=== PATIENT | female | born 1985 | race Caucasian/White ===

== ENCOUNTER 2024-02-22 13:54 | Emergency (ER) | payer MEDICAID, SELFPAY ==
[2024-02-22 13:58] VITALS: BP 158/65; PULSE 86; RESP 16; TEMP 36.7; O2SAT 98; BMI 25.6
[2024-02-22 14:33] LABS: Basophils # 0.1 10^3/uL (0.0-0.1); Basophils % 0.4 %; Eosinophils # 0.1 10^3/uL (0.0-0.8); Eosinophils % 1.1 %; Hematocrit 33.3 % (36-47); Lymphocytes # 2.5 10^3/uL (0.8-4.8); Lymphocytes % 19.1 %; Mean Corpuscular HGB Conc 33.3 g/dL (30-55); Mean Corpuscular Hemoglobin 30.7 pg (27-33); Mean Platelet Volume 8.6 fL (7.4-10.4); Monocytes # 0.7 10^3/uL (0.2-0.9); Neutrophils % 73.5 %; Nucleated Red Blood Cells % 0 %; Platelet Count 240 10^3/cmm (157-399); Red Blood Count 3.62 10^6/uL (3.85-5.65); Red Cell Distribution Width 12.9 % (12.1-15.1); White Blood Count 13.06 10^3/uL (3.29-11.43)
[2024-02-22 14:46] LABS: HCG, Serum Qual Positive (Negative)
[2024-02-22 14:51] LABS: Alanine Aminotransferase 10 U/L (0-33); Albumin Level 3.5 g/dL (3.5-5.2); Alkaline Phosphatase 49 U/L (35-105); Anion Gap 12.8 (5-19); Aspartate Amino Transferase 13 U/L (0-32); Blood Urea Nitrogen 10 mg/dL (6-20); Calcium 9.3 mg/dL (8.5-10.5); Carbon Dioxide 23 mmol/L (22-29); Chloride 102 mmol/L (98-107); Creatinine Clr Calc Pharmacy 111.3075; Glomerular Filtration Rate 111.9 mL/min (90-130); Glucose 108 mg/dL (65-115); Lipase 47 U/L (13-60); Osmolality Calculated 278 mOsm/kg (285-295); Potassium 3.8 mmol/L (3.5-5.1); Sodium 134 mmol/L (136-145); Total Bilirubin 0.2 mg/dL (0.15-1.2); Total Protein 6.5 g/dL (6.6-8.7)
--- NOTE | 2024-02-22 15:10 | W.ED.ABDPA2 ---
HPI - Abdominal Pain General: Chief Complaint: Abdominal Pain Stated Complaint: abd pain, possible contractions, 15 weeks Time Seen by Provider: 02/22/24 14:53 Source: patient Mode of arrival: ambulatory Limitations: no limitations History of Present Illness: 31-year-old female is currently 15 weeks states she has had some lower abdominal cramping was concerned she is having contractions states she has no pain currently. She denies any vaginal bleeding denies any fluid. Patient denies any fever vomiting or diarrhea. Associated Symptoms: Denies chills, diarrhea, fever(s), nausea and vomiting Review of Systems Const: Denies: fever(s), chills, body aches or change in appetite ENMT: Denies: throat pain or dental pain Card: Denies: chest pain Resp: Denies: dyspnea GI: Reports: abdominal pain; Denies: nausea, vomiting or diarrhea Musc: Denies: neck pain or back pain Skin/Breast: Denies: rash Neuro: Denies: headache(s) Physical Exam Const: COMMON NORMALS: no acute distress, patient oriented x3 and healthy appearing HENMT: COMMON NORMALS: normocephalic and atraumatic HEAD & SCALP: normocephalic and atraumatic Eye: COMMON NORMALS: conjunctivae normal CONJUNCTIVA: Yes conjunctivae normal Neck/C-Spine: COMMON NORMALS: full ROM and supple Chest: COMMONS NORMALS: normal inspection of the chest and normal palpation of entire chest wall Resp: COMMON NORMALS: normal respiratory effort Cardio: COMMON NORMALS: regular rate, regular rhythm and No murmurs present (Cardio) RATE: regular rate RHYTHM: regular rhythm GI: COMMON NORMALS: Normal to inspection, nondistended, normoactive bowel sounds present, Soft to palpation, non-tender and no masses PALPATION: Yes Soft to palpation Extremity: COMMON NORMALS: normal to inspection and full ROM Neuro: COMMON NORMALS: patient oriented x3, moves all extremities and no focal motor deficits Psych: COMMON NORMALS: mental status grossly normal, Normal thought process present and cooperative THOUGHT PROCESS: Normal thought process present Skin: COMMON NORMALS: no rashes or lesions noted and no wounds GENERAL SKIN EXAM: no rashes or lesions noted Course Vital Signs: Vital signs: Vital Signs Temperature 98.0 F 02/22/24 13:58 Pulse Rate 86 02/22/24 13:58 Respiratory Rate 16 02/22/24 13:58 Blood Pressure 158/65 02/22/24 13:58 Pulse Oximetry 98 02/22/24 13:58 Oxygen Delivery Me thod Room Air 02/22/24 13:58 MDM - Abdominal Pain Medical Decision Making Patient presents for some abdominal pain in abdominal exam here is completely benign she has no bleeding or discharge I did a bedside ultrasound IUP consistent with dates heart rate 146 she is follow-up with her OB and [facility] in 2 to 4 days return if worsening she understands agrees to plan. Medical Records I reviewed the patient's medical records. Lab Data I reviewed the patient's lab results. 02/22/24 14:20 02/22/24 14:20 Labs/Radiology: Laboratory Results WBC 13.06 10^3/uL (3.29-11.43) H 02/22/24 14:20 RBC 3.62 10^6/uL (3.85-5.65) L 02/22/24 14:20 Hgb 11.10 g/dL (11.27-16.99) L 02/22/24 14:20 Hct 33.3 % (36-47) L 02/22/24 14:20 MCV 92.0 fl (85-98) 02/22/24 14:20 MCH 30.7 pg (27-33) 02/22/24 14:20 MCHC 33.3 g/dL (30-55) 02/22/24 14:20 RDW 12.9 % (12.1-15.1) 02/22/24 14:20 Plt Count 240 10^3/cmm (157-399) 02/22/24 14:20 MPV 8.6 fL (7.4-10.4) 02/22/24 14:20 Neut % (Auto) 73.5 % 02/22/24 14:20 Lymph % (Auto) 19.1 % 02/22/24 14:20 [place] % (Auto) 5.0 % 02/22/24 14:20 Eos % (Auto) 1.1 % 02/22/24 14:20 Baso % (Auto) 0.4 % 02/22/24 14:20 Neut # (Auto) 9.60 10^3/uL (1.8-7.7) H 02/22/24 14:20 Lymph # (Auto) 2.5 10^3/uL (0.8-4.8) 02/22/24 14:20 [place] # (Auto) 0.7 10^3/uL (0.2-0.9) 02/22/24 14:20 Eos # (Auto) 0.1 10^3/uL (0.0-0.8) 02/22/24 14:20 Baso # (Auto) 0.1 10^3/uL (0.0-0.1) 02/22/24 14:20 Nucleated RBC % (auto) 0 % 02/22/24 14:20 Nucleated RBCs # 0.0 /100WBC 02/22/24 14:20 Sodium 134 mmol/L (136-145) L 02/22/24 14:20 Potassium 3.8 mmol/L (3.5-5.1) 02/22/24 14:20 Chloride 102 mmol/L (98-107) 02/22/24 14:20 Carbon Dioxide 23 mmol/L (22-29) 02/22/24 14:20 Anion Gap 12.8 (5-19) 02/22/24 14:20 BUN 10 mg/dL (6-20) 02/22/24 14:20 Creatinine 0.6 mg/dL (0.5-0.9) 02/22/24 14:20 GFR Calculation 111.9 mL/min (90-130) 02/22/24 14:20 Glucose 108 mg/dL (65-115) 02/22/24 14:20 Calculated Osmolality 278 mOsm/kg (285-295) L 02/22/24 14:20 Calcium 9.3 mg/dL (8.5-10.5) 02/22/24 14:20 Total Bilirubin 0.2 mg/dL (0.15-1.2) 02/22/24 14:20 AST 13 U/L (0-32) 02/22/24 14:20 ALT 10 U/L (0-33) 02/22/24 14:20 Alkaline Phosphatase 49 U/L (35-105) 02/22/24 14:20 Total Protein 6.5 g/dL (6.6-8.7) L 02/22/24 14:20 Albumin 3.5 g/dL (3.5-5.2) 02/22/24 14:20 Globulin 3.0 g/dL (1.3-4.6) 02/22/24 14:20 Lipase 47 U/L (13-60) 02/22/24 14:20 HCG, Qual Positive (Negative) H 02/22/24 14:20 No radiology studies performed this visit Discharge Plan Discharge Patient Disposition: Home Clinical Impression: Abdominal pain affecting Condition: Stable Discharge Orders: Discharge ED (Routine); Ordered 02/22/24 Ordered By: Guera Smith Discharge Diet: Advance as tolerated Discharge Activity: Resume usual activity Patient Instructions: Abdominal Pain in (ED) Coding Level of Care Code ED [employer] Se[employer] Manager for Crista Bethea
[2024-02-22 15:21] VITALS: BP 112/58; PULSE 88; O2SAT 97
[2024-02-22 15:43] VITALS: BP 120/65; PULSE 81; O2SAT 100
[2024-02-22 15:49] LABS: Bilirubin Urine Neg (Negative); Blood Urine 3+ (Negative); Glucose Urine UA Norm (Normal); Ketones Urine Negative (Negative); Leukocyte Esterase Urine Negative (Negative); Nitrate Urine Negative (Negative); Protein Urine Neg (Negative); Urine Appearance Clear (CLEAR); Urine Color Yellow (Yellow); Urobilinogen Urine Norm (Negative); pH Urine 5 (5-7)
[2024-02-22 15:50] LABS: Add Urine Microscopic? YES; Bacteria Urine TRACE /hpf; Mucus Urine 1+ /hpf; RBC Urine 0-4 /hpf (0-2); Squamous Epithelial Cell Urine 0-4 /hpf (0-5); WBC Urine 0-4 /hpf (0-5)
[2024-02-22 15:51] LABS: Add Urine Culture? No
== END 2024-02-22 15:44 | disposition home or self-care (01) ==
PROVIDERS: Emergency Provider Emergency Medicine
DX: O26.892 Other specified pregnancy related conditions, second trimester (principal); R10.30 Lower abdominal pain, unspecified; Z3A.15 15 weeks gestation of pregnancy
CPT/HCPCS: 36415; 80053; 81001; 83690; 84703; 85025; 99283

== ENCOUNTER 2024-02-29 12:46 | Emergency (ER) | payer MEDICAID, SELFPAY ==
[2024-02-29 13:01] VITALS: BP 121/70; PULSE 90; RESP 16; TEMP 36.7; O2SAT 98; BMI 26.5
--- NOTE | 2024-02-29 13:52 | ED_ITS ---
HPI - GI Bleed 2 General: Chief complaint: General Medical Stated complaint: 16 week preg, blood in vomit Time Seen by Provider: 02/29/24 13:46 Source: patient Mode of arrival: ambulatory Limitations: no limitations History of Present Illness: Patient is a 39-year-old female with a history of antiphospholipid syndrome on Lovenox currently at 16 weeks here for complaints of hematemesis over the past 4 days. Patient states for the last 4 days she has awoken from sleep and has had one episode of vomiting that she states contains approximately a teaspoon of blood in it. She has also had a small amount of blood from her sinuses when she blows her nose. Patient is not having any abdominal pain. She has an appointment with her high school art teacher in [place] tomorrow and that she plans on attending. She has no history of GI bleeds. Denies black or tarry stools. MD complaint: blood streaked emesis Onset (ago): day(s) Pain Consistency: intermittent (one episode of emesis daily x 4 days) Severity: mild Relieving factors: none Exacerbating factors: none Context: anticoagulant use Associated symptoms: Reports no associated symptoms and vomiting; Denies abdominal pain, chills, fever(s), headache(s), malaise or rash Treatments Prior to Arrival: none Review of Systems 2 Const: Denies: fever(s), chills, body aches, fatigue or malaise Card: Denies: chest pain Resp: Denies: dyspnea GI: Reports: vomiting and hematemesis; Denies: abdominal pain, heartburn, GI cramping, hematochezia or melena : Denies: flank pain, difficulty voiding, dysuria, urinary frequency, urinary urgency or urinary hesitancy Musc: Denies: neck pain, back pain, extremity pain or joint pain Skin/Breast: Denies: rash Neuro: Denies: headache(s), numbness in extremities, weakness in extremities or sensory changes Physical Exam 2 Const: COMMON NORMALS: no acute distress, patient oriented x3, no limitations, alert and well nourished Resp: COMMON NORMALS: normal respiratory effort and clear to auscultation bilaterally AUSCULTATION: clear to auscultation bilaterally Cardio: COMMON NORMALS: regular rate and regular rhythm RATE: regular rate RHYTHM: regular rhythm GI: COMMON NORMALS: Normal to inspection, nondistended, normoactive bowel sounds present, Soft to palpation and non-tender INSPECTION: Yes gravid abdomen AUSCULTATION: Yes normoactive bowel sounds PALPATION: Yes Soft to palpation, No Tenderness to palpation present (GI), No Guarding due to palpation present (GI) and No Rigid due to palpation Neuro: COMMON NORMALS: patient oriented x3 SENSORIUM/ORIENTATION: Yes alert Course 2 Vital Signs: Vital signs: Vital Signs Temperature 98.0 F 02/29/24 13:01 Pulse Rate 90 02/29/24 13:01 Respiratory Rate 16 02/29/24 13:01 Blood Pressure 121/70 02/29/24 13:01 Pulse Oximetry 98 02/29/24 13:01 Oxygen Delivery Me thod Room Air 02/29/24 13:01 MDM - GI Bleed Medical Decision Making Patient appears in no acute distress. Her vital signs are perfect. Her hemoglobin today is identical to what it was 7 days ago. Patient has no abdominal pain. No black or tarry stools. She has not had any vomiting here for Gastroccult testing. At this point due to her antiphospholipid syndrome and I would like her to speak to her high school art teacher at her scheduled appointment tomorrow about the risks versus benefits of discontinuing the Lovenox. I would like her to follow-up with general surgery for further evaluation for a possible endoscopy. This referral was placed. Strict return ED precautions given. Lab Data 02/29/24 14:09 02/29/24 14:09 Laboratory Results WBC 13.56 10^3/uL (3.29-11.43) H 02/29/24 14:09 RBC 3.60 10^6/uL (3.85-5.65) L 02/29/24 14:09 Hgb 11.10 g/dL (11.27-16.99) L 02/29/24 14:09 Hct 33.0 % (36-47) L 02/29/24 14:09 MCV 91.7 fl (85-98) 02/29/24 14:09 MCH 30.8 pg (27-33) 02/29/24 14:09 MCHC 33.6 g/dL (30-55) 02/29/24 14:09 RDW 13.0 % (12.1-15.1) 02/29/24 14:09 Plt Count 246 10^3/cmm (157-399) 02/29/24 14:09 MPV 8.6 fL (7.4-10.4) 02/29/24 14:09 Neut % (Auto) 73.1 % 02/29/24 14:09 Lymph % (Auto) 19.0 % 02/29/24 14:09 [place] % (Auto) 5.8 % 02/29/24 14:09 Eos % (Auto) 0.8 % 02/29/24 14:09 Baso % (Auto) 0.4 % 02/29/24 14:09 Neut # (Auto) 9.92 10^3/uL (1.8-7.7) H 02/29/24 14:09 Lymph # (Auto) 2.6 10^3/uL (0.8-4.8) 02/29/24 14:09 [place] # (Auto) 0.8 10^3/uL (0.2-0.9) 02/29/24 14:09 Eos # (Auto) 0.1 10^3/uL (0.0-0.8) 02/29/24 14:09 Baso # (Auto) 0.1 10^3/uL (0.0-0.1) 02/29/24 14:09 Nucleated RBC % (auto) 0 % 02/29/24 14:09 Nucleated RBCs # 0.0 /100WBC 02/29/24 14:09 PT 12.30 SECONDS (12.1-14.9) 02/29/24 14:09 INR 0.89 (0.8-1.2) 02/29/24 14:09 APTT 25.6 SECONDS (23.9-36.7) 02/29/24 14:09 Sodium 135 mmol/L (136-145) L 02/29/24 14:09 Potassium 4.2 mmol/L (3.5-5.1) 02/29/24 14:09 Chloride 105 mmol/L (98-107) 02/29/24 14:09 Carbon Dioxide 22 mmol/L (22-29) 02/29/24 14:09 Anion Gap 12.2 (5-19) 02/29/24 14:09 BUN 13 mg/dL (6-20) 02/29/24 14:09 Creatinine 0.6 mg/dL (0.5-0.9) 02/29/24 14:09 GFR Calculation 111.9 mL/min (90-130) 02/29/24 14:09 Glucose 102 mg/dL (65-115) 02/29/24 14:09 Calculated Osmolality 280 mOsm/kg (285-295) L 02/29/24 14:09 Calcium 9.5 mg/dL (8.5-10.5) 02/29/24 14:09 Total Bilirubin 0.2 mg/dL (0.15-1.2) 02/29/24 14:09 AST 12 U/L (0-32) 02/29/24 14:09 ALT 11 U/L (0-33) 02/29/24 14:09 Alkaline Phosphatase 46 U/L (35-105) 02/29/24 14:09 Total Protein 6.6 g/dL (6.6-8.7) 02/29/24 14:09 Albumin 3.6 g/dL (3.5-5.2) 02/29/24 14:09 Globulin 3.0 g/dL (1.3-4.6) 02/29/24 14:09 Lipase 42 U/L (13-60) 02/29/24 14:09 No radiology studies performed this visit Discharge Plan Discharge Patient Disposition: Home Clinical Impression: Nausea and vomiting during Condition: Stable Discharge Orders: Discharge ED (Routine); Ordered 02/29/24 Ordered By: Brianne Costello Activity Restrictions/Additional Instructions: As we discussed please speak to your high school art teacher at your scheduled appointment tomorrow in regards to continuing your Lovenox. Your hemoglobin today was exactly the same as it was approximately a week ago. We will place a case management referral for follow-up with general surgery for further evaluation of possible blood in your vomit/emesis. You need to return to the emergency department for repetitive episodes of bloody vomit, black or tarry stools, lightheadedness/dizziness, or any other concerns you may have. Stand Alone Forms: Work/School Release Coding Level of Care Code ED Steam Trap Man for Crista Bethea
[2024-02-29 14:17] LABS: Basophils # 0.1 10^3/uL (0.0-0.1); Basophils % 0.4 %; Eosinophils # 0.1 10^3/uL (0.0-0.8); Eosinophils % 0.8 %; Lymphocytes # 2.6 10^3/uL (0.8-4.8); Mean Corpuscular HGB Conc 33.6 g/dL (30-55); Mean Corpuscular Hemoglobin 30.8 pg (27-33); Mean Corpuscular Volume 91.7 fl (85-98); Mean Platelet Volume 8.6 fL (7.4-10.4); Monocytes # 0.8 10^3/uL (0.2-0.9); Monocytes % 5.8 %; Neutrophils # 9.92 10^3/uL (1.8-7.7); Neutrophils % 73.1 %; Nucleated Red Blood Cells % 0 %; Platelet Count 246 10^3/cmm (157-399); White Blood Count 13.56 10^3/uL (3.29-11.43)
[2024-02-29 14:25] LABS: INR 0.89 (0.8-1.2)
[2024-02-29 14:26] LABS: Partial Thromboplastin Time 25.6 SECONDS (23.9-36.7)
[2024-02-29 14:30] LABS: Alanine Aminotransferase 11 U/L (0-33); Albumin Level 3.6 g/dL (3.5-5.2); Alkaline Phosphatase 46 U/L (35-105); Anion Gap 12.2 (5-19); Aspartate Amino Transferase 12 U/L (0-32); Blood Urea Nitrogen 13 mg/dL (6-20); Calcium 9.5 mg/dL (8.5-10.5); Carbon Dioxide 22 mmol/L (22-29); Chloride 105 mmol/L (98-107); Creatinine Clr Calc Pharmacy 113.1282; Glomerular Filtration Rate 111.9 mL/min (90-130); Glucose 102 mg/dL (65-115); Lipase 42 U/L (13-60); Osmolality Calculated 280 mOsm/kg (285-295); Potassium 4.2 mmol/L (3.5-5.1); Sodium 135 mmol/L (136-145); Total Bilirubin 0.2 mg/dL (0.15-1.2); Total Protein 6.6 g/dL (6.6-8.7)
--- NOTE | 2024-03-01 15:20 | PC.SOCIAL ---
General Surgery Referral to general surgery at this time. Clinic to contact patient with appt date/time.
== END 2024-02-29 15:02 | disposition home or self-care (01) ==
PROVIDERS: Emergency Medicine; Emergency Provider Physician Assistant
DX: O21.9 Vomiting of pregnancy, unspecified (principal); Z3A.16 16 weeks gestation of pregnancy
CPT/HCPCS: 80053; 83690; 85025; 85610; 85730; 99283

== ENCOUNTER 2024-03-06 14:28 | Emergency (ER) | payer MEDICAID, SELFPAY ==
[2024-03-06 14:37] VITALS: BP 106/67; PULSE 95; RESP 16; TEMP 36.9; O2SAT 99; BMI 27.4
--- NOTE | 2024-03-06 15:16 | ED_ITS ---
HPI - General Adult 2 General: Chief complaint: General Medical Stated complaint: COUGHING UP BLOOD Time Seen by Provider: 03/06/24 15:13 History of Present Illness: 39-year-old female comes in today with e pisodes of emesis which she has noticed blood in it. Patient at this time is 17 weeks and is a inpatient at [facility] for substance use disorder. Patient has had nausea and vomiting related to her . Patient is noticed some blood and it seems to be worse from when she was here 1 week ago. Patient reports some small amounts especially with puking. Patient has a history of diabetes, clotting factor disorder, and prior miscarriages. Patient reports no abnormal vaginal bleeding. Patient at this time is on diphenhydramine to help with sleep, promethazine for nausea and vomiting, and Zofran for nausea and vomiting. Patient is also on a dose of Lovenox for her clotting factor disorder. Patient is looking for a medical release from [facility] in order to return to her [facility] in [place] where she resides routinely. Review of Systems 2 General: Reports: 10 or more systems reviewed and unremarkable except in HPI and below GI: Reports: hematemesis Physical Exam 2 Const: COMMON NORMALS: alert HENMT: COMMON NORMALS: normocephalic HEAD & SCALP: normocephalic Neck/C-Spine: COMMON NORMALS: no meningeal signs Resp: COMMON NORMALS: normal respiratory effort Cardio: COMMON NORMALS: regular rate RATE: regular rate GI: AUSCULTATION: Yes normoactive bowel sounds Back/Pelvis: COMMON NORMALS: thoracic and lumbar spine normal to inspection Extremity: COMMON NORMALS: full ROM Neuro: SENSORIUM/ORIENTATION: Yes alert MENINGEAL SIGNS: Yes no meningeal signs Skin: COMMON NORMALS: turgor normal GENERAL SKIN EXAM: turgor normal Course 2 Vital Signs: Vital signs: Vital Signs Temperature 98.4 F 03/06/24 14:37 Pulse Rate 95 03/06/24 14:37 Respiratory Rate 16 03/06/24 14:37 Blood Pressure 106/67 03/06/24 14:37 Pulse Oximetry 99 03/06/24 14:37 Oxygen Delivery Me thod Room Air 03/06/24 14:37 MDM - General Adult Medical Decision Making 39-year-old female comes in today for complaints of abdominal pain with nausea and vomiting. Abdomen is soft with some mild epigastric tenderness. Patient appears nontoxic. Patient appears no pain. Vital signs are normal. Differential diagnosis includes peptic ulcer disease, gastritis, esophagitis, malingering. No significant changes on lab work. Believe patient probably has some gastritis with some mild leakage of blood into her emesis. Recommend patient follow-up with gastroenterology for endoscopy. Discussed need for close her evaluation and treatment with [employer] [employer]. Recommended patient released from [facility] for medical reasons. Patient reports understanding agreed to plan. Lab Data 03/06/24 16:11 03/06/24 16:11 Laboratory Results WBC 12.27 10^3/uL (3.29-11.43) H 03/06/24 16:11 RBC 3.47 10^6/uL (3.85-5.65) L 03/06/24 16:11 Hgb 10.80 g/dL (11.27-16.99) L 03/06/24 16:11 Hct 32.3 % (36-47) L 03/06/24 16:11 MCV 93.1 fl (85-98) 03/06/24 16:11 MCH 31.1 pg (27-33) 03/06/24 16:11 MCHC 33.4 g/dL (30-55) 03/06/24 16:11 RDW 13.1 % (12.1-15.1) 03/06/24 16:11 Plt Count 226 10^3/cmm (157-399) 03/06/24 16:11 MPV 8.6 fL (7.4-10.4) 03/06/24 16:11 Neut % (Auto) 74.5 % 03/06/24 16:11 Lymph % (Auto) 17.7 % 03/06/24 16:11 [place] % (Auto) 5.7 % 03/06/24 16:11 Eos % (Auto) 0.8 % 03/06/24 16:11 Baso % (Auto) 0.3 % 03/06/24 16:11 Neut # (Auto) 9.14 10^3/uL (1.8-7.7) H 03/06/24 16:11 Lymph # (Auto) 2.2 10^3/uL (0.8-4.8) 03/06/24 16:11 [place] # (Auto) 0.7 10^3/uL (0.2-0.9) 03/06/24 16:11 Eos # (Auto) 0.1 10^3/uL (0.0-0.8) 03/06/24 16:11 Baso # (Auto) 0.0 10^3/uL (0.0-0.1) 03/06/24 16:11 Nucleated RBC % (auto) 0 % 03/06/24 16:11 Nucleated RBCs # 0.0 /100WBC 03/06/24 16:11 PT 11.60 SECONDS (12.1-14.9) L 03/06/24 16:11 INR 0.83 (0.8-1.2) 03/06/24 16:11 APTT 20.3 SECONDS (23.9-36.7) L 03/06/24 16:11 Sodium 137 mmol/L (136-145) 03/06/24 16:11 Potassium 4.0 mmol/L (3.5-5.1) 03/06/24 16:11 Chloride 106 mmol/L (98-107) 03/06/24 16:11 Carbon Dioxide 24 mmol/L (22-29) 03/06/24 16:11 Anion Gap 11.0 (5-19) 03/06/24 16:11 BUN 11 mg/dL (6-20) 03/06/24 16:11 Creatinine 0.7 mg/dL (0.5-0.9) 03/06/24 16:11 GFR Calculation 93.6 mL/min (90-130) 03/06/24 16:11 Glucose 105 mg/dL (65-115) 03/06/24 16:11 Calculated Osmolality 284 mOsm/kg (285-295) L 03/06/24 16:11 Calcium 9.7 mg/dL (8.5-10.5) 03/06/24 16:11 Total Bilirubin 0.2 mg/dL (0.15-1.2) 03/06/24 16:11 AST 12 U/L (0-32) 03/06/24 16:11 ALT 11 U/L (0-33) 03/06/24 16:11 Alkaline Phosphatase 46 U/L (35-105) 03/06/24 16:11 Total Protein 6.7 g/dL (6.6-8.7) 03/06/24 16:11 Albumin 3.7 g/dL (3.5-5.2) 03/06/24 16:11 Globulin 3.0 g/dL (1.3-4.6) 03/06/24 16:11 No radiology studies performed this visit Discharge Plan Discharge Patient Disposition: Home Clinical Impression: Gastritis Qualifiers: Gastritis type: unspecified gastritis Chronicity: acute Gastritis bleeding: w ith bleeding Qualified Code(s): K29.01 - Acute gastritis with bleeding Condition: Stable Prescriptions: New Carafate 100 mg/mL suspension 1 g PO Q6H 28 Days Qty: 1120 0RF Discharge Orders: Discharge ED (Routine); Ordered 03/06/24 Ordered By: Magen Otoole Discharge Diet: Advance as tolerated Discharge Activity: Increase activity as tolerated Patient Instructions: Gastritis (ED) Activity Restrictions/Additional Instructions: Home and rest. Clear liquid diet until he can tolerate more advanced foods. Continue with routine medications as directed. Take Carafate 1 g, 10 mL's, every 6 hours for gastric discomfort. Need to follow-up to have further evaluation with endoscopy. You need to be manage with your [employer] [employer] due to a chronic medical condition. Patient needs release from [facility] in order to continue with the evaluation and care. Return to the ER for worsening bleeding or new concerns. Coding Level of Care Code ED Vice President Underwriting for Crista Bethea
[2024-03-06 16:17] LABS: Basophils % 0.3 %; Eosinophils # 0.1 10^3/uL (0.0-0.8); Eosinophils % 0.8 %; Hematocrit 32.3 % (36-47); Lymphocytes # 2.2 10^3/uL (0.8-4.8); Lymphocytes % 17.7 %; Mean Corpuscular HGB Conc 33.4 g/dL (30-55); Mean Corpuscular Hemoglobin 31.1 pg (27-33); Mean Corpuscular Volume 93.1 fl (85-98); Mean Platelet Volume 8.6 fL (7.4-10.4); Monocytes # 0.7 10^3/uL (0.2-0.9); Monocytes % 5.7 %; Neutrophils # 9.14 10^3/uL (1.8-7.7); Neutrophils % 74.5 %; Nucleated Red Blood Cells % 0 %; Platelet Count 226 10^3/cmm (157-399); Red Blood Count 3.47 10^6/uL (3.85-5.65); Red Cell Distribution Width 13.1 % (12.1-15.1); White Blood Count 12.27 10^3/uL (3.29-11.43)
[2024-03-06] MEDS: lidocaine 2% viscous 15 ML, aluminum-mag hydrox-simethicon 30 ML, sucralfate oral liq 1 GM PO (16:36)
[2024-03-06 16:42] LABS: Alanine Aminotransferase 11 U/L (0-33); Albumin Level 3.7 g/dL (3.5-5.2); Alkaline Phosphatase 46 U/L (35-105); Aspartate Amino Transferase 12 U/L (0-32); Blood Urea Nitrogen 11 mg/dL (6-20); Calcium 9.7 mg/dL (8.5-10.5); Carbon Dioxide 24 mmol/L (22-29); Chloride 106 mmol/L (98-107); Creatinine Clr Calc Pharmacy 98.5277; Glomerular Filtration Rate 93.6 mL/min (90-130); Glucose 105 mg/dL (65-115); Osmolality Calculated 284 mOsm/kg (285-295); Sodium 137 mmol/L (136-145); Total Bilirubin 0.2 mg/dL (0.15-1.2); Total Protein 6.7 g/dL (6.6-8.7)
[2024-03-06 16:44] LABS: INR 0.83 (0.8-1.2)
[2024-03-06 16:45] LABS: Partial Thromboplastin Time 20.3 SECONDS (23.9-36.7)
[2024-03-06 17:27] VITALS: BP 108/71; PULSE 92; RESP 16; TEMP 36.9; O2SAT 98
== END 2024-03-06 17:28 | disposition home or self-care (01) ==
PROVIDERS: Emergency Provider Nurse Practitioner Family
DX: O99.612 Diseases of the digestive system complicating pregnancy, second trimester (principal); K29.01 Acute gastritis with bleeding; Z3A.17 17 weeks gestation of pregnancy
CPT/HCPCS: 36415; 80053; 85025; 85610; 85730; 99284

== ENCOUNTER 2024-03-08 13:03 | Emergency (ER) | payer MEDICAID, SELFPAY ==
[2024-03-08 13:08] VITALS: BP 107/68; PULSE 84; RESP 16; TEMP 36.6; O2SAT 95
[2024-03-08 14:19] LABS: Basophils # 0.1 10^3/uL (0.0-0.1); Basophils % 0.4 %; Eosinophils # 0.1 10^3/uL (0.0-0.8); Hematocrit 31.6 % (36-47); Lymphocytes # 2.2 10^3/uL (0.8-4.8); Lymphocytes % 18.2 %; Mean Corpuscular HGB Conc 33.9 g/dL (30-55); Mean Corpuscular Hemoglobin 31.3 pg (27-33); Mean Corpuscular Volume 92.4 fl (85-98); Mean Platelet Volume 8.5 fL (7.4-10.4); Monocytes # 0.7 10^3/uL (0.2-0.9); Monocytes % 5.4 %; Neutrophils # 8.92 10^3/uL (1.8-7.7); Neutrophils % 73.6 %; Nucleated Red Blood Cells % 0 %; Platelet Count 219 10^3/cmm (157-399); Red Blood Count 3.42 10^6/uL (3.85-5.65); White Blood Count 12.12 10^3/uL (3.29-11.43)
[2024-03-08 14:36] LABS: Alanine Aminotransferase 10 U/L (0-33); Albumin Level 3.4 g/dL (3.5-5.2); Alkaline Phosphatase 45 U/L (35-105); Anion Gap 12.8 (5-19); Aspartate Amino Transferase 12 U/L (0-32); Blood Urea Nitrogen 9 mg/dL (6-20); Calcium 9.6 mg/dL (8.5-10.5); Carbon Dioxide 20 mmol/L (22-29); Chloride 110 mmol/L (98-107); Creatinine Clr Calc Pharmacy 136.1903; Glomerular Filtration Rate 138.1 mL/min (90-130); Glucose 116 mg/dL (65-115); Lipase 36 U/L (13-60); Osmolality Calculated 288 mOsm/kg (285-295); Potassium 3.8 mmol/L (3.5-5.1); Sodium 139 mmol/L (136-145); Total Bilirubin 0.2 mg/dL (0.15-1.2); Total Protein 6.4 g/dL (6.6-8.7)
--- NOTE | 2024-03-08 15:14 | PC.PHAR ---
pt is from [facility] [phone] jovani nurse states she will fax mar and tar
--- NOTE | 2024-03-08 15:26 | USR_ITS ---
PROCEDURE INFORMATION: Exam: US , Limited Exam date and time: 03/08/2024 4:10 PM Age: 39 years old Clinical indication: Screening exam; Routine US, uterus; Additional info: 17 weeks gestation, vaginal bleeding, cramping LABS AND CLINICAL REPORTS: Gestational age (Established): 17 w 2 d Estimated due date (Established): 08/14/2024 TECHNIQUE: Imaging protocol: Real-time ultrasound of the maternal uterus with image documentation. Exam focused on the clinical indication. COMPARISON: No relevant prior studies available. FINDINGS: Gestation: Single live intrauterine gestation. heart rate: 144 bpm presentation and position: Breech presentation. Placenta: No placenta previa. Grade 1 right posterior fundal placenta. stomach: There is fluid in the stomach. BIOMETRY: Gestational age (AUA): 17 weeks 2 days Estimated due date (AUA): 08/14/2024 by ultrasound (08/14/2024 by established dates). Estimated weight: 183.57 g. EFW by AC, BPD, FL, HC, [place] 1985. (36th percentile). Biparietal diameter (BPD): 3.8 cm. EGA (BPD) is 17 w 4 d. 64.1 % percentile Head circumference (HC): 13.98 cm. EGA (HC) is 17 w 2 d. 42.5 % percentile Abdominal circumference (AC): 11.53 cm. EGA (AC) is 17 w 2 d. 49.5 % percentile Femur length (FL): 2.31 cm. EGA (FL) is 17 w 0 d. 31.4 % percentile Cephalic Index (CI): 77.08. (Normal range: 70 - 86) HC/AC: 1.21. (Normal range: 1.07 - 1.29) FL/HC: 16.52. (Normal range: 14.94 - 17.71) FL/BPD: 60.79 FL/AC: 20.03 MATERNAL: Cervix: Cervix is closed. Cervical length is 3.5 cm. Urinary bladder: Maternal bladder is unremarkable. US/US OB limited [id number] IMPRESSION: Single live intrauterine gestation of 17 weeks 2 days by ultrasound for [place] of 08/14/2024. No apparent complications.
--- NOTE | 2024-03-08 15:35 | ED_ITS ---
HPI - Female Genitourinary 2 General: Chief complaint: Urogenital-Female Stated complaint: vaginal bleeing 17weeks preg Time Seen by Provider: 03/08/24 15:08 History of Present Illness: Patient presents to the ER at 17 weeks and 2 days gestation. Patient says she passed a blood clot the size of a marble 1 time today. Patient is on Lovenox shots. Patient has a history of miscarriages. Patient is G 10 with 4 live births and 5 miscarriages. Patient is having cramping in her lower pelvis. Patient is currently free from meth for for the last 42 days. Patient is at [employer] for substance abuse. Review of Systems 2 General: Reports: 10 or more systems reviewed and unremarkable except in HPI and below Physical Exam 2 Const: COMMON NORMALS: no acute distress, average body habitus, patient oriented x3, no limitations, healthy appearing, alert and well nourished Neck/C-Spine: COMMON NORMALS: no JVD Chest: COMMONS NORMALS: normal inspection of the chest and normal palpation of entire chest wall Resp: COMMON NORMALS: normal respiratory effort, No retractions, No use of accessory muscles and clear to auscultation bilaterally AUSCULTATION: clear to auscultation bilaterally Cardio: COMMON NORMALS: no JVD, regular rate, regular rhythm, S1 normal heart sound present, S2 normal heart sound present, No gallops present (Cardio), No clicks present (Cardio), No murmurs present (Cardio) and No rub (Cardio) R ATE: regular rate RHYTHM: regular rhythm HEART SOUNDS: S1 normal heart sound present and S2 normal heart sound present GI: COMMON NORMALS: Normal to inspection, nondistended, normoactive bowel sounds present, Soft to palpation, No hepatosplenomegaly present and no masses; negative for non-tender (Tender to palpate lower pelvic and suprapubic region) PALPATION: Yes Soft to palpation and Yes No hepatosplenomegaly present Neuro: COMMON NORMALS: patient oriented x3 SENSORIUM/ORIENTATION: Yes alert Course 2 Vital Signs: Vital signs: Vital Signs Temperature 97.9 F 03/08/24 13:08 Pulse Rate 84 03/08/24 13:08 Respiratory Rate 16 03/08/24 13:08 Blood Pressure 107/68 03/08/24 13:08 Pulse Oximetry 95 03/08/24 13:08 MDM - Female Medical Decision Making Patient lab work included CBC CMP lipase as well as ultrasound which showed 17 weeks 2 days gestation with no complications. Patient be discharged home to follow-up with her PCP and [facility]. Differential Diagnosis Likely abdominal pain; Unlikely acute appendicitis, calculus of kidney, constipation, diverticulitis, endometriosis, gastroenteritis, pancreatitis or small bowel obstruction Medical Records I reviewed the patient's medical records. Lab Data I reviewed the patient's lab results. 03/08/24 14:12 03/08/24 14:12 Radiology Impressions Obstetrics Ultrasound 03/08/24 15:26 IMPRESSION: Single live intrauterine gestation of 17 weeks 2 days by ultrasound for [place] of 08/14/2024. No apparent complications. Laboratory Results WBC 12.12 10^3/uL (3.29-11.43) H 03/08/24 14:12 RBC 3.42 10^6/uL (3.85-5.65) L 03/08/24 14:12 Hgb 10.70 g/dL (11.27-16.99) L 03/08/24 14:12 Hct 31.6 % (36-47) L 03/08/24 14:12 MCV 92.4 fl (85-98) 03/08/24 14:12 MCH 31.3 pg (27-33) 03/08/24 14:12 MCHC 33.9 g/dL (30-55) 03/08/24 14:12 RDW 13.0 % (12.1-15.1) 03/08/24 14:12 Plt Count 219 10^3/cmm (157-399) 03/08/24 14:12 MPV 8.5 fL (7.4-10.4) 03/08/24 14:12 Neut % (Auto) 73.6 % 03/08/24 14:12 Lymph % (Auto) 18.2 % 03/08/24 14:12 [place] % (Auto) 5.4 % 03/08/24 14:12 Eos % (Auto) 1.0 % 03/08/24 14:12 Baso % (Auto) 0.4 % 03/08/24 14:12 Neut # (Auto) 8.92 10^3/uL (1.8-7.7) H 03/08/24 14:12 Lymph # (Auto) 2.2 10^3/uL (0.8-4.8) 03/08/24 14:12 [place] # (Auto) 0.7 10^3/uL (0.2-0.9) 03/08/24 14:12 Eos # (Auto) 0.1 10^3/uL (0.0-0.8) 03/08/24 14:12 Baso # (Auto) 0.1 10^3/uL (0.0-0.1) 03/08/24 14:12 Nucleated RBC % (auto) 0 % 03/08/24 14:12 Nucleated RBCs # 0.0 /100WBC 03/08/24 14:12 Sodium 139 mmol/L (136-145) 03/08/24 14:12 Potassium 3.8 mmol/L (3.5-5.1) 03/08/24 14:12 Chloride 110 mmol/L (98-107) H 03/08/24 14:12 Carbon Dioxide 20 mmol/L (22-29) L 03/08/24 14:12 Anion Gap 12.8 (5-19) 03/08/24 14:12 BUN 9 mg/dL (6-20) 03/08/24 14:12 Creatinine 0.5 mg/dL (0.5-0.9) 03/08/24 14:12 GFR Calculation 138.1 mL/min (90-130) H 03/08/24 14:12 Glucose 116 mg/dL (65-115) H 03/08/24 14:12 Calculated Osmolality 288 mOsm/kg (285-295) 03/08/24 14:12 Calcium 9.6 mg/dL (8.5-10.5) 03/08/24 14:12 Total Bilirubin 0.2 mg/dL (0.15-1.2) 03/08/24 14:12 AST 12 U/L (0-32) 03/08/24 14:12 ALT 10 U/L (0-33) 03/08/24 14:12 Alkaline Phosphatase 45 U/L (35-105) 03/08/24 14:12 Total Protein 6.4 g/dL (6.6-8.7) L 03/08/24 14:12 Albumin 3.4 g/dL (3.5-5.2) L 03/08/24 14:12 Globulin 3.0 g/dL (1.3-4.6) 03/08/24 14:12 Lipase 36 U/L (13-60) 03/08/24 14:12 Urine Color Yellow (Yellow) 03/08/24 15:54 Urine Appearance Clear (CLEAR) 03/08/24 15:54 Urine pH 5 (5-7) 03/08/24 15:54 Ur Specific [place] 1.010 (1.005-1.030) 03/08/24 15:54 Urine Protein Neg (Negative) 03/08/24 15:54 Urine Glucose (UA) Norm (Normal) 03/08/24 15:54 Urine Ketones Negative (Negative) 03/08/24 15:54 Urine Blood 2+ (Negative) H 03/08/24 15:54 Urine Nitrate Negative (Negative) 03/08/24 15:54 Urine Bilirubin Neg (Negative) 03/08/24 15:54 Urine Urobilinogen Norm mg/dL (Negative) 03/08/24 15:54 Ur Leukocyte Esterase Negative (Negative) 03/08/24 15:54 Urine RBC 0-4 /hpf (0-2) H 03/08/24 15:54 Urine WBC 0-4 /hpf (0-5) H 03/08/24 15:54 Ur Squamous Epith Cells 5-10 /hpf (0-5) H 03/08/24 15:54 Amorphous Sediment Not Reportable 03/08/24 15:54 Urine Bacteria Trace /hpf (NONE) 03/08/24 15:54 All radiology interpretation(s) finalized by discharge Discharge Plan Discharge Patient Disposition: Home Clinical Impression: Vaginal bleeding in patient at less than 20 weeks gestation Condition: Stable Prescriptions: No Action Carafate 100 mg/mL suspension 1 g PO Q6H 28 Days Qty: 1120 0RF Discharge Orders: Discharge ED (Routine); Ordered 03/08/24 Ordered By: Charly Dao Referrals: Tmoi Talbot MD [Primary Care Provider] - 1 week Patient Instructions: at 15 to 18 Weeks (ED) Activity Restrictions/Additional Instructions: Please follow-up with your PCP and [facility]. If your symptoms return or worsen please feel free to return to the ER. Coding Level of Care Code ED [employer] for [place]
[2024-03-08 16:18] LABS: Add Urine Microscopic? YES; Bacteria Urine TRACE /hpf; Bilirubin Urine Neg (Negative); Blood Urine 2+ (Negative); Glucose Urine UA Norm (Normal); Ketones Urine Negative (Negative); Leukocyte Esterase Urine Negative (Negative); Nitrate Urine Negative (Negative); Protein Urine Neg (Negative); RBC Urine 0-4 /hpf (0-2); Urine Appearance Clear (CLEAR); Urine Color Yellow (Yellow); Urobilinogen Urine Norm (Negative); WBC Urine 0-4 /hpf (0-5); pH Urine 5 (5-7)
[2024-03-08 16:19] LABS: Add Urine Culture? No
[2024-03-08 17:15] VITALS: PULSE 82; RESP 18; O2SAT 96
[2024-03-08 17:17] VITALS: PULSE 82; RESP 16; O2SAT 96
== END 2024-03-08 17:12 | disposition home or self-care (01) ==
PROVIDERS: Emergency Medicine; Emergency Provider Emergency Medicine; PCP Internal Medicine
DX: O20.9 Hemorrhage in early pregnancy, unspecified (principal); Z3A.17 17 weeks gestation of pregnancy
CPT/HCPCS: 36415; 76815; 80053; 81001; 83690; 85025; 99284